=== PATIENT | male | born 1970 | race Hispanic/Latino ===

== ENCOUNTER 2021-07-16 18:26 | Emergency (ER) | payer SELFPAY ==
--- OUTSIDE RECORDS SUMMARY | 2021-07-16 18:41 | XMS REPORT | Continuity of Care Document ---
:[address] [facility] t Address [address] [place] [address] Care Team Providers Name Role Phone Damari Canales Attending Clinician Doctor Unassigned, [place] Attending Clinician Unavailable Sara Chen Attending Clinician Pcp, Does Not Have A Attending Clinician Lab, Fam Pob I Attending Clinician Unavailable Problems This patient has no known problems. Allergies, Adverse Reactions, Alerts This patient has no known allergies or adverse reactions. Medications This patient has no known medications. Procedures This patient has no known procedures. Encounters Start End Encounter Admission Attending Care Care Encounter Source Date/Time Date/Time Type Type Clinicians Facility Department ID 2021-07-11 2021-07-11 Emergency [facility] [id number] 10:47:00 11:30:00 Damari Arriaga [id number] [place] [id number] [place] [id number] 2021-07-11 2021-07-11 Orders Doctor LOLIS [id number] 00:00:00 00:00:00 Only [place]assigned[place] [id number] [place] [facility] [id number] 2021-03-31 2021-03-31 Telephone [facility] [id number] 00:00:00 00:00:00 [facility] [id number] [place] [id number] [place] [phone] nal [address] 2021-03-20 2021-03-20 Letter Pcp, [facility] [id number] 00:00:00 00:00:00 (Out) Patient Health [id number] Does Not [place] [id number] Have A Professio [phone] nal 0[address] 2021-03-19 2021-03-19 Laboratory Lab, [facility] [id number] 17:25:00 17:45:00 Only Fam Pob I Health [id number] [place] [id number] Profess[place] [phone] nal 0[address] Results This patient has no known results.
--- NOTE | 2021-07-16 19:58 | RAD REPORT ---
EXAM DESCRIPTION: Joaquín Pa And Lat (2 Views)07/16/2021 7:38 pm CLINICAL HISTORY: Cough COMPARISON: None FINDINGS: Moderate bilateral pulmonary opacities. The heart is normal size. Lucency within the left neck IMPRESSION: Moderate bilateral pulmonary opacities likely pneumonia Lucency within the left neck may indicate small amount of subcutaneous emphysema
[2021-07-16] MEDS ORDERED: NA CHLORIDE 0.9% 1,000 ML ONE (21:06)
[2021-07-16 21:10] LABS: Potassium 4.4 mmol/L (3.5-5.1)
[2021-07-17] MEDS ORDERED: MAGNESIUM SULFATE 1 gm IVPB 1 GM/100 ML BAG IV ONE (00:05)
[2021-07-17] MEDS ORDERED: dexAMETHasone 10 MG/ML VIAL ONE (00:05)
[2021-07-17] MEDS ORDERED: CASIRIVIMAB/IMDEVIMAB 10 ML VIAL ONE (00:08)
[2021-07-17] MEDS ORDERED: NA CHLORIDE 0.9% 250 ML ONE (00:08)
--- NOTE | 2021-07-17 02:51 | EDPHYS ---
Physician Documentation [facility] Name: Royce Larkin Age: 50 yrs Sex: Male : 1970 Arrival Date: 07/16/2021 Time: 18:28 Bed 9 Private MD: ED Physician Vince Guzmán HPI: 07/17 01:33 This 50 yrs old Male presents to ER via Ambulatory with complaints of jmm Shortness Of Breath - covid+. 01:33 The patient has shortness of breath at rest. Onset: The symptoms/episode began/occurred jmm gradually, 10 day(s) ago. Duration: The symptoms are continuous, and are steadily getting worse. The patient's shortness of breath is aggravated by nothing, is alleviated by nothing. Associated signs and symptoms: Pertinent negatives: fever. 50-year-old male with no chronic conditions presents emerged part with complaints of cough, progressive worsening shortness of breath over the past 10 days. Patient was diagnosed with coronavirus.. Historical: - Allergies: 07/16 19:12 No Known Allergies; kg - Home Meds: 19:12 None [Active]; kg - PMHx: 19:12 None; kg - PSHx: 19:12 None; kg - Immunization history:: Adult Immunizations not up to date, Client reports having NOT received the Covid vaccine. - Social history:: Smoking status: Patient denies any tobacco usage or history of. Patient uses alcohol, occasionally. ROS: 07/17 01:33 Cardiovascular: Negative for chest pain, palpitations, and edema. jm Constitutional: Positive for malaise. Respiratory: Positive for shortness of breath. All other systems are negative. Exam: 01:33 Constitutional: This is a well developed, well nourished patient who is awake, alert, jmm and in no acute distress. Head/Face: atraumatic. Eyes: EOMI, no conjunctival erythema appreciated ENT: Moist Mucus Membranes Neck: Trachea midline, Supple Chest/axilla: Normal chest wall appearance and motion. Cardiovascular: Regular rate and rhythm. No edema appreciated Respiratory: Normal respirations, no respiratory distress appreciated Abdomen/GI: Non distended, soft Back: Normal ROM Skin: General appearance color normal MS/ Extremity: Moves all extremities, no obvious deformities appreciated, no edema noted to the lower extremities Neuro: Awake and alert, normal gait Psych: Behavior is normal, Mood is normal, Patient is cooperative and pleasant Vital Signs: 07/16 19:09 BP 131 / 85; Pulse 119; Resp 25; Temp 98.4(O); Pulse Ox 97% on R/A; Weight 49.9 kg (R); kg Height 5 ft. 3 in. (160.02 cm); Pain 9/10; 21:00 BP 112 / 72; Pulse 101; Resp 16; Pulse Ox 97% on R/A; zb 22:15 BP 145 / 90; Pulse 101; Resp 18; Pulse Ox 93% on R/A; zb 07/17 01:25 BP 122 / 92; Pulse 104; Resp 20; Temp 98.0; Pulse Ox 95% on R/A; em 02:00 BP 118 / 86; Pulse 105; Resp 22; Pulse Ox 94% on R/A; em 02:25 BP 115 / 84; Pulse 98; Resp 18; Pulse Ox 95% on R/A; em 07/16 19:09 Body Mass Index 19.49 (49.90 kg, 160.02 cm) kg MDM: 07/16 23:21 Patient medically screened. [facility] 07/17 01:40 Data reviewed: vital signs, nurses notes. [facility] 02:49 Data reviewed: lab test result(s), radiologic studies, CT scan. ED course: Is alert [facility] nontoxic in appearance in the ED. Patient is not hypoxic and does not require O2. Monoclonal antibiotics were administered in the ED without adverse reaction. Patient is advised to follow-up with PCP and otherwise given strict return precautions. Patient understood and agrees plan of care.. 07/16 20:17 Order name: BMP; Complete Time: 21:36 [facility] 07/16 20:17 Order name: D-Dimer; Complete Time: 23:23 [facility] 07/16 19:14 Order name: XRAY Chest Pa And Lat (2 Views); Complete Time: 21:36 kg 07/16 22:00 Order name: CT Chest For PE Angio [facility] 07/16 20:17 Order name: Saline Lock; Complete Time: 21:13 [facility] Administered Medications: 07/16 21:00 Drug: NS 0.9% 1000 ml Route: IV; Rate: 1 bolus; Site: left antecubital; 07/17 00:13 Follow up: Response: No adverse reaction; IV Status: Completed infusion; IV Intake: zb 1000ml 07/16 23:50 Drug: Magnesium Sulfate 1 grams Route: IVPB; Infused Over: 1 hrs; Site: left zb antecubital; 07/17 01:22 Follow up: Response: No adverse reaction; IV Status: Completed infusion; IV Intake: em 100ml 00:13 Drug: Decadron - Dexamethasone 10 mg Route: IVP; Site: left antecubital; 01:23 Follow up: Response: No adverse reaction em 01:25 Drug: REGEN-COV Dose Pack 120 mg/mL-120 mg/mL (EUA) 600 mg Route: IV; Rate: calculated em rate; Site: left antecubital; 02:58 Follow up: Response: No adverse reaction; IV Status: Completed infusion; IV Intake: em 260ml Disposition: 06:23 Co-signature as Attending Physician, Vince Guzmán MD. [email or web address] Disposition Summary: 07/17/21 02:50 Discharge Ordered Location: Home [facility] Condition: Stable [facility] Diagnosis - Coronavirus infection, unspecified [facility] Followup: [facility] - With: Private Physician - When: 2 - 3 days - Reason: Recheck today's complaints, Continuance of care, Re-evaluation by your physician Discharge Instructions: - Discharge Summary Sheet [facility] - COVID-19 [facility] Forms: - Medication Reconciliation Form [facility] - Thank You Letter [facility] - Antibiotic Education [facility] - Prescription Opioid Use [facility] Prescriptions: - albuterol sulfate 90 mcg/actuation Inhalation HFA aerosol inhaler - inhale 2 puff by INHALATION route every 4 hours; 1 Pump; Refills: 0, Product [facility] Selection Permitted - Prednisone 20 mg Oral Tablet - take 3 tablets by ORAL route once daily for 5 days; 15 tablet; Refills: 0, [facility] Product Selection Permitted Signatures: Dispatcher [employer] Chacho Bone PA PA jmm Munoz, Edgar RN Vince Ro MD MD 7 Gabriela Britt RN RN zGladys Carmichael RN RN kg
--- NOTE | 2021-07-17 02:51 | ER ---
Nurse's Notes [facility] Name: Royce Larkin Age: 50 yrs Sex: Male : 1970 Arrival Date: 07/16/2021 Time: 18:28 Bed 9 Private MD: Diagnosis: Coronavirus infection, unspecified Presentation: 07/16 19:09 Chief complaint: Patient states: SOB, Cough, body aches x 10 days. Pt stated that he kg was diagnosed COVID + at [facility] 10 days ago. Coronavirus screen: Client denies travel out of the [place] in the last 14 days. At this time, unable to obtain information related to travel outside the [place] Client presents with at least one sign or symptom that may indicate coronavirus-19. Standard/surgical mask placed on the client. Provider contacted for isolation considerations. Client reports previous positive COVID test result. Date of collection: July 06, 2021. Ebola Screen: Patient negative for fever greater than or equal to 101.5 degrees Fahrenheit, and additional compatible Ebola Virus Disease symptoms Patient denies exposure to infectious person. Patient denies travel to an Ebola-affected area in the 21 days before illness onset. Initial Sepsis Screen: Does the patient meet any 2 criteria? RR > 20 per min. HR > 90 bpm. Does the patient have a suspected source of infection? Yes: Productive cough/pneumonia. Risk Assessment: Do you want to hurt yourself or someone else? Patient reports no desire to harm self or others. Onset of symptoms was July 06, 2021. 19:09 Method Of Arrival: Ambulatory kg 19:09 Acuity: SMOOTH 3 kg Triage Assessment: 19:12 General: Appears in no apparent distress. Behavior is calm, cooperative, appropriate kg for age, quiet. Pain: Complains of pain in Generalized. Respiratory: Reports shortness of breath at rest on exertion since 10 days ago cough that is productive, Onset: The symptoms/episode began/occurred gradually, the patient has mild shortness of breath. Historical: - Allergies: 19:12 No Known Allergies; kg - Home Meds: 19:12 None [Active]; kg - PMHx: 19:12 None; kg - PSHx: 19:12 None; kg - Immunization history:: Adult Immunizations not up to date, Client reports having NOT received the Covid vaccine. - Social history:: Smoking status: Patient denies any tobacco usage or history of. Patient uses alcohol, occasionally. Screenin:14 Abuse screen: Denies threats or abuse. Denies injuries from another. Nutritional kg screening: No deficits noted. Tuberculosis screening: No symptoms or risk factors identified. Fall Risk None identified. Assessment: 19:14 Respiratory: Airway is patent Respiratory effort is even, labored. kg 21:50 Reassessment: notified ECP of Dimer. zb 07/17 01:25 Reassessment: initiated regen-covid infusion, will monitor for signs and symptoms of em allergic reaction, pt instructed to verbalize any shortness of breath, chest pain or any other symptoms. 02:25 Reassessment: Patient appears in no apparent distress at this time. Patient is alert, em oriented x 3, equal unlabored respirations, skin warm/dry/pink. 02:30 Reassessment: pt has not had any infusion reactions, pt will be monitored for 1 hour. em 03:00 Reassessment: Patient appears in no apparent distress at this time. Patient and/or em family updated on plan of care and expected duration. Pain level reassessed. Patient is alert, oriented x 3, equal unlabored respirations, skin warm/dry/pink. Vital Signs: 07/16 19:09 BP 131 / 85; Pulse 119; Resp 25; Temp 98.4(O); Pulse Ox 97% on R/A; Weight 49.9 kg (R); kg Height 5 ft. 3 in. (160.02 cm); Pain 9/10; 21:00 BP 112 / 72; Pulse 101; Resp 16; Pulse Ox 97% on R/A; zb 22:15 BP 145 / 90; Pulse 101; Resp 18; Pulse Ox 93% on R/A; zb 07/17 01:25 BP 122 / 92; Pulse 104; Resp 20; Temp 98.0; Pulse Ox 95% on R/A; em 02:00 BP 118 / 86; Pulse 105; Resp 22; Pulse Ox 94% on R/A; em 02:25 BP 115 / 84; Pulse 98; Resp 18; Pulse Ox 95% on R/A; em 07/16 19:09 Body Mass Index 19.49 (49.90 kg, 160.02 cm) kg ED Course: 07/16 18:28 Patient arrived in ED. as 19:12 Triage completed. kg 19:12 Arm band placed on. kg 19:14 Patient has correct armband on for positive identification. kg 19:14 No provider procedures requiring assistance completed. kg 19:36 XRAY Chest Pa And Lat (2 Views) In Process Unspecified. EDMS 20:17 Chacho Higgins, PA is PHCP. jmm 20:17 Vince Guzmán MD is Attending Physician. jmm 20:23 Gabriela Britt RN is Primary Nurse. zb 22:31 CT Chest For PE Angio In Process Unspecified. EDMS 07/17 04:08 IV discontinued, intact, bleeding controlled, No redness/swelling at site. Pressure em dressing applied. Administered Medications: 07/16 21:00 Drug: NS 0.9% 1000 ml Route: IV; Rate: 1 bolus; Site: left antecubital; b 07/17 00:13 Follow up: Response: No adverse reaction; IV Status: Completed infusion; IV Intake: zb 1000ml 07/16 23:50 Drug: Magnesium Sulfate 1 grams Route: IVPB; Infused Over: 1 hrs; Site: left antecubital; 07/17 01:22 Follow up: Response: No adverse reaction; IV Status: Completed infusion; IV Intake: em 100ml 00:13 Drug: Decadron - Dexamethasone 10 mg Route: IVP; Site: left antecubital; zb 01:23 Follow up: Response: No adverse reaction em 01:25 Drug: REGEN-COV Dose Pack 120 mg/mL-120 mg/mL (EUA) 600 mg Route: IV; Rate: calculated em rate; Site: left antecubital; 02:58 Follow up: Response: No adverse reaction; IV Status: Completed infusion; IV Intake: em 260ml Intake: 00:13 IV: 1000ml; Total: 1000ml. zb 01:22 IV: 100ml; Total: 1100ml. em 02:58 IV: 260ml; Total: 1360ml. em Outcome: 02:50 Discharge ordered by . jmm 04:08 Discharged to home via wheelchair. em 04:08 Condition: improved 04:08 Discharge instructions given to patient, Instructed on discharge instructions, follow up and referral plans. medication usage, Demonstrated understanding of instructions, follow-up care, medications, Prescriptions given X 2. 04:08 Patient left the ED. em Signatures: Dispatcher [employer] Chacho Bone PA PA jmm Munoz, Edgar, RN RN Mary Ellen Subramanian Z[place]or[place], RN RN Gladys Mccracken RN RN kg
[2021-07-17 04:18] VITALS: TEMP 98
[2021-07-17 04:21] VITALS: BP 115/84; O2SAT 95
--- NOTE | 2021-07-19 11:43 | RAD REPORT ---
EXAM DESCRIPTION: CT - Chest For Pe Angio - 07/17/2021 6:41 am COMPARISON: None. CLINICAL HISTORY: Covid, elevated d-dimer TECHNIQUE: CT images through the chest with IV contrast using the pulmonary embolus protocol. Multip lanar reformats. Automated exposure control was utilized on this examination as a dose lowering scot hnique. FINDINGS: Pulmonary arteries and vascular: Diagnostic quality bolus. No filling defects. Heart and mediastinum: Heart size is normal. No lymphadenopathy. Mediastinal gas is present. Thyroid gland: Visualized portions are normal. Lungs: Multifocal bilateral consolidations are present. Airways: No filling defects. No bronchiectasis. Pleura: No pneumothorax. No significant pleural effusion. Subphrenic structures: Within normal limits. Musculoskeletal and soft tissues: Supraclavicular gas is present. IMPRESSION: 1. No acute pulmonary embolus. 2. Multifocal pneumonia. Commonly reported imaging features of (COVID-19 or viral) pneumonia are pr esent. Other processes such as influenza pneumonia and organizing pneumonia, as can be seen with drug toxicity and connective tissue disease, can cause a similar imaging pattern. 3. Pneumomediastinum. This could be due to barotrauma or trauma from cough. Esophageal or tracheal perforation are less likely possibilities. Electronically signed by: Jose M Kramer MD 07/16/2021 11:14 PM CDT Due to temporary technical issues with the PACS/Fluency reporting system, reports are being signed by the in house radiologist without review as a courtesy to ensure prompt reporting. The interpreting r adiologist is fully responsible for the content of the report.
== END 2021-07-17 04:08 | disposition home or self-care (01) ==
LOC: ER 18:26
DX: U07.1 COVID-19 (principal)
CPT/HCPCS: 36415; 71046; 71275; 80048; 85379; 96361; 96365; 96366; 96367; 96375; 99283; J7030; Q9967